=== PATIENT | female | born 1965 | race Caucasian/White ===

== ENCOUNTER 2021-11-26 07:42 | Day surgery (SDC) | payer OTHER ==
[~2021-11-26] VITALS: Ht 156.2 cm; Wt 102.5 kg
[2021-11-26] MEDS ORDERED: ONDANSETRON HCL 4 MG/2 ML VIAL IM PRN (12:30)
[2021-11-26] MEDS ORDERED: OXYCODONE/ACETAMINOPHEN 5-325 TABLET PO PRN ×2 (12:30)
[2021-11-26] MEDS ORDERED: IBUPROFEN 800 MG TABLET PO PRN (12:30)
[2021-11-26] MEDS ORDERED: LR 1,000 ML IV SCH (12:45)
[2021-11-26] MEDS ORDERED: ONDANSETRON HCL 4 MG/2 ML VIAL IVP PRN (12:45)
[2021-11-26] MEDS ORDERED: KETOROLAC TROMETHAMINE 30 MG VIAL IVP PRN (12:45)
[2021-11-26] MEDS ORDERED: LABETALOL 100 MG/ 20ML VIAL IVP PRN (12:45)
[2021-11-26 16:07] VITALS: BP_SYST 141
== END 2021-11-26 14:05 | disposition home or self-care (01) ==
LOC: SDS 07:42 → SMU 07:43 → SDS 14:05
PROVIDERS: ATTEND Obstetrics & Gynecology
DX: N95.0 Postmenopausal bleeding (principal); N94.89 Other specified conditions associated with female genital organs and menstrual cycle; R93.89 Abnormal findings on diagnostic imaging of other specified body structures; I10 Essential (primary) hypertension; E78.5 Hyperlipidemia, unspecified; Z20.822 Contact with and (suspected) exposure to COVID-19; Z79.899 Other long term (current) drug therapy
CPT/HCPCS: 36415 ×2; 58558; 88305; 87426; U0003; C1819